=== PATIENT | female | born 1975 | race Caucasian/White ===

== ENCOUNTER 2022-09-01 17:36 | Emergency (ER) | payer OTHER, MEDICAID, SELFPAY ==
[2022-09-01 17:40] VITALS: BP 129/86; PULSE 97; RESP 18; TEMP 36.6; O2SAT 100; BMI 30.2
--- NOTE | 2022-09-01 17:40 | ED_ITS ---
HPI - General Adult General Chief complaint: Upper Respiratory Symptoms Stated complaint: Asthma/Chest discomfort Time Seen by Provider: 09/01/22 21:37 Related Data Previous Rx's ?Medication ?Instructions ?Recorded albuterol sulfate 90 mcg/actuation 2 puff inhalation Q4-6H PRN 09/01/22 aerosol inhaler (ProAir HFA) shortness of breath or wheezing #8.5 grams benzonatate 200 mg capsule 200 mg PO TID PRN cough #30 caps 09/01/22 prednisone 20 mg tablet 40 mg (2 x 20 mg) PO DAILY #10 tabs 09/01/22 Allergies Allergy/AdvReac Type Severity Reaction Status Date / Time No Known Allergies Allergy Verified 09/01/22 17:40 PMFSH Social History Social History Advance Directives: No Advance Directives Information Provided: No Physical Exam ED Vital Signs: BMI result Body Mass Index 30.2 Course Course Course Narrative: This is an RME: Additional HPI, ROS, PE not included below will be deferred to primary provider. Patient is a 47 year old female with no past medical history presenting with a complaint of chest congestion. Patient reports headache, chills, and a dry cough for 3 days. Patient reports feeling like she needs to cough something up but nothing comes out. Patient denies fever, chills, nausea, vomiting, chest pain, numbness, tingling. Plan: CXR, viral testing PERC negative. Medications Administered Discontinued Medications Generic Name Dose Route Start Last Admin Trade Name Freq PRN Reason Stop Dose Admin Albuterol Sulfate 10 mg 09/01/22 17:44 09/01/22 20:37 Albuterol Sulfate 2.5 Mg/0.5 Ml Vial.Neb INHALE 09/01/22 17:45 10 mg ONCE ONE Administration Benzonatate 200 mg 09/01/22 22:13 09/01/22 22:34 Benzonatate 100 Mg Capsule PO 09/01/22 22:14 200 mg ONCE ONE Administration Prednisone 40 mg 09/01/22 22:13 09/01/22 22:34 Prednisone 20 Mg Tablet PO 09/01/22 22:14 40 mg ONCE ONE Administration Medical Decision Making Lab Data Labs: Lab Results 09/01/22 Range/Units 17:52 COVID-19 (NATASHA) Negative (Negative) COVID-19 Clin Com See Note Influenza Type A (DOREEN) Negative (Negative) Influenza Type B (DOREEN) Negative (Negative) Influenza A & B Note See Note Discharge Plan Discharge Clinical Impression: Bronchitis Patient Disposition: Home, Self-Care Instructions: Acute Bronchitis (ED) Additional Instructions: Take prednisone and cough drops as prescribed Continue use inhaler 2 puffs every 4-6 hours Follow with PCP Prescriptions: New benzonatate 200 mg capsule 200 mg PO TID PRN (Reason: cough) Qty: 30 0RF prednisone 20 mg tablet 40 mg PO DAILY Qty: 10 0RF albuterol sulfate [ProAir HFA] 90 mcg/actuation HFA aerosol inhaler 2 puff inhalation Q4-6H PRN (Reason: shortness of breath or wheezing) Qty: 8.5 0RF Stand Alone Forms: Work/School Release Interventions: ED Discharge Assessment Last Done: 09/01/22 22:27 Discharge Date/Time: 09/01/22 22:40 Print Language: Bengali
[2022-09-01 22:37] VITALS: BP 148/78; PULSE 108; RESP 20; TEMP 36.6; O2SAT 100
== END 2022-09-01 22:40 | disposition home or self-care (01) ==
PROVIDERS: Emergency Provider Internal Medicine; PCP Nurse Practitioner Family
DX: J45.909 Unspecified asthma, uncomplicated (principal); R07.89 Other chest pain; Z20.822 Contact with and (suspected) exposure to COVID-19; Z20.828 Contact with and (suspected) exposure to other viral communicable diseases
CPT/HCPCS: 71045; 87502; 87635; 99283; 99284

== ENCOUNTER 2024-07-13 20:03 | Emergency (ER) | payer MEDICAID, SELFPAY ==
--- NOTE | ~2024-07-13 | XR_ITS ---
CLINICAL HISTORY: b l low back pain, rad down RLE Exam: AP, lateral, and spot lateral views of the lumbar spine. Comparison: None. Findings: Bony alignment of the lumbar vertebral bodies is anatomic. No fracture. Disc space heights are well preserved. Mild facet joint degenerative change from L2-3 inferiorly. Cholecystectomy clips are present in the right upper quadrant. Impression: No acute findings. If the patient has persistent or worsening right radiculopathy, MRI of the lumbar spine would be suggested. This document has been electronically signed by: Gibran Gerardo MD on 07/13/2024 21:15:58
--- NOTE | 2024-07-13 20:24 | ED.GENADULT ---
HPI - General Adult General Chief complaint: Back Pain/Injury Stated complaint: lower back pain severe goes down to Rt leg Time Seen by Provider: 07/14/24 02:22 Source: patient, RN notes reviewed and old records reviewed Mode of arrival: ambulatory Limitations: no limitations History of Present Illness ED Provider: Jignesh HOLLINGSWORTH narrative: 49-year-old female presents for evaluation of right lower back pain. She reports that her symptoms started yesterday. She has pain to her right lower back that radiates to her left lower back as well as her right leg. The pain is worse with bearing weight on the right leg pain She denies any numbness, tingling, weakness, bladder or bowel incontinence She denies any falls or injuries to the lower back Denies any other symptoms including chest pain, cough, shortness of breath, abdominal pain, nausea vomiting, diarrhea, constipation Denies any history of IV drug abuse She took some naproxen with some relief of her pain Related Data Previous Rx's ?Medication ?Instructions ?Recorded albuterol sulfate 90 mcg/actuation 2 puff inhalation Q4-6H PRN 09/01/22 aerosol inhaler (ProAir HFA) shortness of breath or wheezing #8.5 grams benzonatate 200 mg capsule 200 mg PO TID PRN cough #30 caps 09/01/22 prednisone 20 mg tablet 40 mg (2 x 20 mg) PO DAILY #10 tabs 09/01/22 cyclobenzaprine 10 mg tablet 10 mg PO TID PRN muscle spasm #20 07/14/24 tabs dexamethasone 4 mg tablet 4 mg PO BID #5 tabs 07/14/24 Allergies Allergy/AdvReac Type Severity Reaction Status Date / Time No Known Allergies Allergy Verified 07/13/24 20:29 Review of Systems Constitutional: Constitutional: Denies body ache(s), Denies chills, Denies fever(s) and Denies headache(s) Eyes: Eyes: Denies blurry vision, Denies floaters and Denies irritation ENT: Denies vertigo, Denies dizziness, Denies headache(s) and Denies neck pain Cardiovascular: Cardiovascular: Denies chest pain, Denies chest pain at rest and Denies dyspnea Respiratory: Respiratory: Denies cough and Denies dyspnea Gastrointestinal: Gastrointestinal: Denies abdominal pain Genitourinary: Genitourinary: Denies hematuria Musculoskeletal: Musculoskeletal: Reports back pain, Denies neck pain, Denies numbness, Reports radiating pain into limb, Reports stiffness and Denies tingling Integumentary/Breasts: Skin/Breast: Denies rash Neurologic: Denies vertigo, Denies dizziness, Denies headache(s), Denies numbness and Denies tingling Psychiatric: Psychiatric: Denies anxiety PMFSH Social History Social History Smoked in Last 30 Days: No Use of substances other than those prescribed or required for medical reasons: No Advance Directives: No Advance Directives Information Provided: Yes Do you have a plan to hurt others: No Plan Patient : No Physical Exam ED Vital Signs: Vital Signs - 24 hr 07/13/24 20:27 07/14/24 00:03 07/14/24 02:49 Temperature 98.1 F 98.2 F 98.0 F Pulse Rate 99 79 82 Respiratory Rate 16 16 16 Blood Pressure 132/84 129/84 124/79 Pulse Oximetry 99 98 97 Oxygen Delivery Method Room Air Room Air Room Air 07/14/24 02:59 Temperature 98.0 F Pulse Rate 82 Respiratory Rate 16 Blood Pressure 124/79 Pulse Oximetry 97 Oxygen Delivery Method Room Air BMI result Body Mass Index 31.8 Const General: healthy appearing, comfortable, no acute distress, alert and awake Nutritional Appearance: well nourished Orientation/consciousness: patient oriented x3 HENMT Head: Yes normocephalic and Yes atraumatic Eyes Eyelids: Yes eyelids normal Conjunctivae: conjunctivae normal Sclerae: sclerae normal Corneas: corneas normal Pupils: Equal, round and reactive pupils present EOM: EOMs intact bilaterally Neck Neck: Yes full ROM Resp Effort & Inspection: normal respiratory effort, able to speak in complete sentences and not labored Cardio Rate: regular rate Rhythm: regular rhythm GI Inspection: No distended Palpation (GI): Soft to palpation, not firm, nontender, no guarding and not rigid Back/Spine/Pelvis Other: The patient has tenderness to the right lumbar sacral region and over the sacroiliac joint. Straight leg raise positive on right. Skin General skin exam: elasticity normal Neuro General: patient oriented x3 Cranial nerves: Yes Equal, round and reactive pupils present and Yes Bilaterally intact EOM present Cognition (Neuro): normal cognition Gait exam (Neuro): Normal gait present Motor exam (neuro): 5/5 motor strength present throughout Deep tendon reflexes (DTR's): Right patellar reflex intensity grade: 3+ and Left patellar reflex intensity grade: 3+ Extrem Other: Moving all extremities well without any obvious deformities Course Course Course Narrative: 07/13/242024 LORRI Harper This is a Rapid Medical Examination (RME) performed by Kareem Mendez PA-C in triage. Full HPI, ROS, assessment and treatment plan per primary provider in the Main ED. Hx: 49 yo F here for eval of right sided low back pain radiating down right LE and now to left lower back that began today while at work. 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 no injury or trauma. no hx of spinal surgeries. no hx IVDU. took naproxen at 1200 with some relief. no urinary sx. no back pain red flags. PE/vitals: walking w/ limping gait Plan: xrs Medications Administered Discontinued Medications Generic Name Dose Route Start Last Admin Trade Name Freq PRN Reason Stop Dose Admin Dexamethasone 4 mg 07/14/24 02:41 07/14/24 02:50 Dexamethasone 4 Mg Tablet PO 07/14/24 02:42 4 mg ONCE ONE Administration Ketorolac Tromethamine 30 mg 07/14/24 02:41 07/14/24 02:51 Ketorolac Tromethamine 30 Mg/Ml Vial IM 07/14/24 02:42 30 mg ONCE ONE Administration Medical Decision Making Medical Decision Making MDM Narrative: 49-year-old female evaluation of lower back pain. She has had pain for the last 2 days. Denies any traumatic injury. X-ray shows mild arthropathy but no significant compression fracture. Her exam is reassuring, she has good strength, positive patellar reflexes. She denies any warning signs for cauda equina syndrome. She is able to ambulate. No history of IV drug abuse, no fevers. Her pain is most consistent with sciatica. We will treat with a short course of dexamethasone and cyclobenzaprine. This was discussed with her and she will follow up with her outpatient providers Differential Diagnosis Differential Diagnoses: The differential diagnosis associated with the presentation includes Sciatica Lumbar radiculopathy Back pain Compression fracture Radiculopathy Radiology Impression Discussion of test interpretation with radiology: I have reviewed the radiologist's reading. Radiologist Impression: Findings: Bony alignment of the lumbar vertebral bodies is anatomic. No fracture. Disc space heights are well preserved. Mild facet joint degenerative change from L2-3 inferiorly. Cholecystectomy clips are present in the right upper quadrant. Impression: No acute findings. If the patient has persistent or worsening right radiculopathy, MRI of the lumbar spine would be suggested. This document has been electronically signed by: Gibran Gerardo MD on 07/13/2024 21:15:58 Discharge Plan Discharge Clinical Impression: Sciatica Patient Disposition: Home, Self-Care Instructions: Sciatica (ED) Additional Instructions: Your x-ray showed mild arthritis Your pain is most likely related to sciatica. Take dexamethasone twice daily for 3 days You may also use naproxen as needed for the pain. Use cyclobenzaprine as needed for muscle spasms. This may make you drowsy, do not drink alcohol or drive after taking it Follow-up with your primary doctor, return for new or worsening symptoms Prescriptions: New cyclobenzaprine 10 mg tablet 10 mg PO TID PRN (Reason: muscle spasm) Qty: 20 0RF dexamethasone 4 mg tablet 4 mg PO BID Qty: 5 0RF No Action benzonatate 200 mg capsule 200 mg PO TID PRN (Reason: cough) Qty: 30 0RF prednisone 20 mg tablet 40 mg PO DAILY Qty: 10 0RF albuterol sulfate [ProAir HFA] 90 mcg/actuation HFA aerosol inhaler 2 puff inhalation Q4-6H PRN (Reason: shortness of breath or wheezing) Qty: 8.5 0RF Interventions: ED Discharge Assessment Last Done: 07/14/24 02:59 Discharge Date/Time: 07/14/24 03:06 Print Language: Luxembourgish
[2024-07-13 20:27] VITALS: BP 132/84; PULSE 99; RESP 16; TEMP 36.7; O2SAT 99; BMI 31.8
[2024-07-14 00:03] VITALS: BP 129/84; PULSE 79; RESP 16; TEMP 36.8; O2SAT 98
[2024-07-14 02:49] VITALS: BP 124/79; PULSE 82; RESP 16; TEMP 36.7; O2SAT 97
[2024-07-14] MEDS: dexAMETHasone 4 MG TABLET PO (02:50)
[2024-07-14] MEDS: Ketorolac Tromethamine 30 MG/ML VIAL IM (02:51)
[2024-07-14 02:59] VITALS: BP 124/79; PULSE 82; RESP 16; TEMP 36.7; O2SAT 97
== END 2024-07-14 03:06 | disposition home or self-care (01) ==
PROVIDERS: Emergency Provider Emergency Medicine; PCP Dentist General Practice
DX: M54.41 Lumbago with sciatica, right side (principal)
CPT/HCPCS: 72100; 96372; 99284; J1885; J8540

== ENCOUNTER → 2024-07-13 20:28 | Outpatient (BNV) | payer OTHER, MEDICAID, SELFPAY | PROVIDERS: Visit Provider Radiology Diagnostic Radiology | DX: M54.31 Sciatica, right side (principal) | CPT/HCPCS: 72100 ==